=== PATIENT | male | born 1975 | race Hispanic/Latino ===

== ENCOUNTER 2024-11-09 12:16 | Emergency (ER) | payer OTHER ==
[~2024-11-09] VITALS: Ht 165.1 cm; Wt 84.8 kg
[2024-11-09 12:35] VITALS: TEMP 97.8
[2024-11-09] MEDS: SODIUM CHLORIDE 0.9% 1000ML 1,000 ML IV STA ×2 (13:20→13:22)
[2024-11-09 13:21] LABS: BASOPHILS # (AUTO) 0.1 (0.0-0.1); BASOPHILS % 0.4 % (0.0-1.0); HEMATOCRIT 50.2 % (38.2-49.6); HEMOGLOBIN 16.6 g/dL (14.0-18.0); LYMPHOCYTES % 7.1 % (18.0-39.1); MEAN CORPUSCULAR HEMOGLOBIN 29.9 pg (28-32); MEAN CORPUSCULAR HGB CONC 33.1 g/dL (31-35); MEAN CORPUSCULAR VOLUME 90.5 fL (81-99); MONOCYTES # (AUTO) 0.2 (0.2-0.8); MONOCYTES % 1.7 % (4.4-11.3); NEUTROPHILS # (AUTO) 12.4 (2.1-6.9); NEUTROPHILS % 90.6 % (38.7-80.0); PLATELET COUNT 395 x10e3/uL (140-360); RED BLOOD COUNT 5.55 x10e6/uL (4.3-5.7); RED CELL DISTRIBUTION WIDTH 12.5 % (11.7-14.4); WHITE BLOOD COUNT 13.72 x10e3/uL (4.8-10.8)
[2024-11-09] MEDS: ONDANSETRON HCL INJ 2MG/ML 2ML 2 MG/ML VIAL IV STA (13:21)
[2024-11-09] MEDS: DIPHENHYDRAMINE HCL INJ 50 MG/ML VIAL IV ONE ×2 (13:21→15:38)
[2024-11-09 13:29] LABS: INR 1.01; PROTHROMBIN TIME 13.9 seconds (11.9-14.5)
[2024-11-09 13:30] LABS: PARTIAL THROMBOPLASTIN TIME 24.3 seconds (23.8-35.5)
[2024-11-09 13:40] LABS: ALBUMIN/GLOBULIN RATIO 0.9 (0.8-2.0); ANION GAP 26.2 mmol/L (8-16); BILIRUBIN,TOTAL 0.9 mg/dL (0.2-1.2); CALCIUM 10.6 mg/dL (8.4-10.2); CREATININE, SERUM 1.19 mg/dL (0.72-1.25); MAGNESIUM 2.1 MG/DL (1.3-2.1); POTASSIUM 4.2 mmol/L (3.5-5.1); TOTAL PROTEIN 8.7 g/dL (6.5-8.1)
[2024-11-09 13:50] LABS: TROPONIN I 0.004 ng/mL (0-0.300)
[2024-11-09] MEDS ORDERED: IOPAMIDOL 370 MG/ML 100 ML INFUS..BTL INJ ONE (14:00)
[2024-11-09 14:56] VITALS: BP 196/100; PULSE 116
[2024-11-09] MEDS: LABETALOL HCL 5 MG/ML 20ML VIAL IV STA (14:56)
[2024-11-09] MEDS: PROMETHAZINE 12.5MG/ NACL 0.9% 12.5 MG/50 ML BAG IV ONE (15:38)
[2024-11-09 17:09] LABS: BACTERIA,URINE FEW /HPF; BILIRUBIN,URINE NEGATIVE (NEGATIVE); CLARITY,URINE SL CLOUDY (CLEAR); COLOR,URINE YELLOW (YELLOW); EPITHELIAL CELLS,URINE FEW /LPF; GLUCOSE, URINE 500 (NEGATIVE); KETONES,URINE 2+ (NEGATIVE); LEUKOCYTE ESTERASE ,URINE NEGATIVE (NEGATIVE); NITRITE,URINE NEGATIVE (NEGATIVE); PH,URINE 6 (5 - 7); PROTEIN,URINE DIPSTICK >=300 (NEGATIVE); RBC,URINE 21-50 /HPF (0-5); URINE UROBILINOGEN 0.2 mg/dL (0.2 - 1); WBC,URINE (MAN) 0-5 /HPF (0-5)
[2024-11-09 17:23] VITALS: PULSE 92; RESP 18; O2SAT 100
[2024-11-09] MEDS ORDERED: PHENERGAN SUPP25 MG PR (17:30)
[2024-11-09] MEDS ORDERED: ONDANSETRON ODT4 MG PO (17:30)
== END 2024-11-09 18:00 | disposition home or self-care (01) ==
LOC: ER 12:48
DX: R11.2 Nausea with vomiting, unspecified (principal); R19.7 Diarrhea, unspecified; E86.0 Dehydration; T50.995A Adverse effect of other drugs, medicaments and biological substances, initial encounter; E11.65 Type 2 diabetes mellitus with hyperglycemia; I10 Essential (primary) hypertension; E78.5 Hyperlipidemia, unspecified; R94.31 Abnormal electrocardiogram [ECG] [EKG]
CPT/HCPCS: 36415; 74177; 80053; 81001; 82550; 83605; 83690; 83735; 84484; 85025; 85610; 85730; 87040; 87086; 93005; 99284; J1200; J2405; J2470; J2550; J3490; J7030; Q9967